=== PATIENT | male | born 1975 | race Caucasian/White ===

== ENCOUNTER 2017-10-12 02:24 | Emergency (ER) | payer SELFPAY ==
[~2017-10-12] VITALS: Ht 180.3 cm; Wt 109.2 kg
[~2017-10-12 02:24] MED LIST: FLEXERIL10 MG PO; NAPROSYN500 MG PO; NO
[2017-10-12 04:03] LABS: INFLUENZA A NONE DETECTED (NONE DETECT); INFLUENZA B NONE DETECTED (NONE DETECT)
[2017-10-12] MEDS ORDERED: AMOXICILLIN500 MG PO (04:56)
[2017-10-12 05:15] VITALS: BP 154/111
== END 2017-10-12 05:19 | disposition home or self-care (01) | DRG 153 ==
LOC: ED 02:24
PROVIDERS: Emergency Medicine
DX: J02.0 Streptococcal pharyngitis (principal); I10 Essential (primary) hypertension